=== PATIENT | male | born 1945 | race Native Hawaiian/Other Pacific Islander ===

== ENCOUNTER 2020-12-20 11:34 | Emergency (ER) | payer OTHER ==
[~2020-12-20] VITALS: Ht 180.3 cm; Wt 83.9 kg
[2020-12-20 13:35] VITALS: BP 135/69; TEMP 97
== END 2020-12-20 13:35 | disposition home or self-care (01) ==
LOC: ED 11:34
DX: S22.42XA Multiple fractures of ribs, left side, initial encounter for closed fracture (principal); S20.212A Contusion of left front wall of thorax, initial encounter; W01.198A Fall on same level from slipping, tripping and stumbling with subsequent striking against other object, initial encounter; Y92.59 Other trade areas as the place of occurrence of the external cause
CPT/HCPCS: 99283; J1885